=== PATIENT | male | born 1970 | race Two or more races ===

== ENCOUNTER 2017-12-27 05:57 | Emergency (ER) | payer OTHER ==
[~2017-12-27] VITALS: Ht 188 cm; Wt 90.7 kg
[2017-12-27] MEDS ORDERED: IV NS 0.9% 1,000 ML BAG IV ONE (06:30)
[2017-12-27 06:55] LABS: BASOPHILS % (AUTO) 0.1 % (0.0-2.0); EOSINOPHILS % (AUTO) 0.8 % (0.0-6.0); HEMATOCRIT 49 % (39-51); HEMOGLOBIN 16.2 g/dL (13.5-17.5); LYMPHOCYTES # (AUTO) 0.7 /CMM (0.8-4.8); LYMPHOCYTES % (AUTO) 4.4 % (20.0-44.0); MEAN CORPUSCULAR HEMOGLOBIN 29 PG (26.0-33.0); MEAN CORPUSCULAR HGB CONC 33 g/dl (31.0-36.0); MEAN CORPUSCULAR VOLUME 89 fL (80-96); MONOCYTES # (AUTO) 0.8 /CMM (0.1-1.30); MONOCYTES % (AUTO) 5.3 % (2.0-12.0); NEUTROPHILS # (AUTO) 13.9 /CMM (1.8-8.9); NEUTROPHILS % (AUTO) 89.4 % (43.0-81.0); PLATELET COUNT (AUTO) 236 /CMM (150-450); RDW COEFFICIENT OF VARIATION 12.8 (11.5-15.0); RED BLOOD CELL COUNT(AUTO) 5.54 MIL/uL (4.5-6.0); WHITE BLOOD COUNT (AUTO) 15.5 K/uL (4.3-11.0)
[2017-12-27 07:02] LABS: CALCIUM, SERUM 8.7 mg/dL (8.5-10.1); CARBON DIOXIDE 27 mmol/L (21-32); CHLORIDE 103 mmol/L (98-107); CREATININE 1.1 mg/dL (0.6-1.3); GLUCOSE 130 mg/dL (74-106); MAGNESIUM 2.2 mg/dL (1.8-2.4); POTASSIUM 4.2 mmol/L (3.5-5.1); SODIUM SERUM 141 mmol/L (136-145); UREA NITROGEN, BLOOD 21 mg/dL (7-18)
[2017-12-27 07:06] LABS: TROPONIN I < 0.017 ng/mL (0.00-0.056)
--- NOTE | 2017-12-27 07:37 | NUR ---
CALLED [facility].
--- NOTE | 2017-12-27 09:45 | NUR ---
Patient will go to [facility] [id number]. Accepted by Dr Maximus Marroquin. For report call [phone]. [facility] eta [phone].
[2017-12-27 09:50] VITALS: BP 109/63
--- NOTE | 2017-12-27 10:01 | NUR ---
REPORT GIVEN TO DARRELL DICKERSON FOR [facility].
--- NOTE | 2017-12-27 10:18 | NUR ---
REPORT GIVEN TO [facility] FOR TRANSPORT TO [facility]. TRASNFER PAPERS PROVIDED.
== END 2017-12-27 10:24 | disposition short-term general hospital (02) ==
LOC: ER 05:57
DX: R55 Syncope and collapse (principal); I49.3 Ventricular premature depolarization; R94.31 Abnormal electrocardiogram [ECG] [EKG]; G43.909 Migraine, unspecified, not intractable, without status migrainosus; Z88.0 Allergy status to penicillin
CPT/HCPCS: 36415; 71045; 80048; 82962; 83735; 84484; 85025; 93005; 96360; 99285; A4606; J7030; Z7610